=== PATIENT | female | born 1995 | race Caucasian/White ===

== ENCOUNTER 2020-03-09 15:34 | Outpatient (CLI) | payer OTHER ==
[~2020-03-09 15:34] MED LIST: HYDR-4383 PO; IBUP-1985 PO; NO HOME MEDS; ONDA4TAB6 PO
== END 2020-03-09 23:59 | disposition home or self-care (01) ==
LOC: 64 CT 15:34
PROVIDERS: ATTEND Family Medicine
DX: R10.9 Unspecified abdominal pain (principal); R63.0 Anorexia; R11.2 Nausea with vomiting, unspecified
CPT/HCPCS: 74176